=== PATIENT | female | born 1995 | race Caucasian/White ===

== ENCOUNTER 2020-11-21 09:29 | Emergency (ER) | payer MEDICAID ==
[~2020-11-21] VITALS: Ht 167.6 cm; Wt 115.9 kg
[2020-11-21 10:30] VITALS: BP 125/74
[2020-11-21 10:42] LABS: CLARITY,URINE CLOUDY (Clear); COLOR,URINE YELLOW (Yellow); GLUCOSE, URINE NEGATIVE (Neg); KETONES,URINE >=80 mg/dl (Neg); LEUKOCYTE ESTERASE ,URINE TRACE (Neg); NITRITES, URINE NEGATIVE (Neg); OCCULT BLOOD,URINE NEGATIVE (Neg); PH,URINE 7.5 (4.8-8.0); PROTEIN,URINE 30 mg/dl (Neg)
[2020-11-21 10:43] LABS: UA COLLECTION TYPE CLN CATCH MIDSTREAM
--- NOTE | 2020-11-21 10:45 | NUR ---
PT BROUGHT ICE WATER
[2020-11-21 10:49] LABS: MUCUS STRANDS MANY /LPF (Neg); TRANSITIONAL EPI CELLS,URINE FEW /HPF
[2020-11-21 10:52] LABS: AMORPHOUS PHOSPHATES 4+
[2020-11-21 10:54] LABS: RBC,URINE NONE SEEN /HPF (0-2); SQUAMOUS EPITHELIAL CELL,UR MANY /LPF (FEW); WBC,URINE 0-4 /HPF (0-4)
[2020-11-21 10:55] LABS: BACTERIA,URINE 3+ /HPF (Neg)
== END 2020-11-21 11:35 | disposition home or self-care (01) ==
LOC: ER 09:30
DX: U07.1 COVID-19 (principal); O26.93 Pregnancy related conditions, unspecified, third trimester; R60.9 Edema, unspecified; Z3A.36 36 weeks gestation of pregnancy
CPT/HCPCS: 81001; 87635; 99283; C9803